=== PATIENT | male | born 1940 | race Asian ===

== ENCOUNTER 2021-02-26 08:53 | Inpatient (IN) | payer MEDICARE, MEDICAID ==
[~2021-02-26] VITALS: Ht 167.6 cm; Wt 79.8 kg
[~2021-02-26 08:53] MED LIST: ACET500C47 PO; BIMA2.5D4 OP; BRIM10DR2 OP; CLON0.1T PO; CLOP75TA4 PO; DEXL60CA3 PO; LISI20TA31 PO; LOP25 PO; MINO2.5T2 PO; OMEG1CAP17 PO; TAMS0.4C31 PO; URSO300C4 PO; WELC PO; ZOLP5TAB8 PO
[2021-02-26] MEDS ORDERED: DEXAMETHASONE 4MG/ML 1ML VIAL IV ONE (09:45)
[2021-02-26 10:03] LABS: HEMATOCRIT. 35.3 % (42.0-52.0); HEMOGLOBIN. 11.8 g/dL (14.0-18.0); MEAN CORPUSCULAR HEMOGLOBIN 28.6 pg (28.0-32.0); MEAN CORPUSCULAR VOLUME 85.3 fL (80.0-94.0); PLATELET 500 x1000/uL (130-400); RED BLOOD CELL COUNT 4.13 mill/uL (4.7-6.1); RED CELL DISTRIBUTION WIDTH 14.9 % (11.6-14.6)
[2021-02-26 10:10] LABS: CHLORIDE 99 mEq/L (98-107)
[2021-02-26 10:13] LABS: PROTHROMBIN TIME 11.1 sec (9.6-11.0)
[2021-02-26] MEDS ORDERED: PIPERACILLIN/TAZ 3.375G PREMIX 50 ML IV ONE (10:15)
[2021-02-26] MEDS ORDERED: VANCOMYCIN 1 G PREMIX 200 ML IV ONE (10:15)
[2021-02-26 10:46] LABS: PLATELET ESTIMATE INCREASED
[2021-02-26 11:20] LABS: CLARITY URINE CLEAR (CLEAR); COLOR URINE DARK YELLOW (YELLOW); KETONES URINE NEGATIVE (NEGATIVE); LEUKOCYTE ESTERASE URINE TRACE (NEGATIVE); NITRITE URINE NEGATIVE (NEGATIVE); OCCULT BLOOD URINE NEGATIVE (NEGATIVE); PROTEIN URINE NEGATIVE (NEGATIVE); SPECIFIC GRAVITY URINE 1.018 (1.005-1.030)
[2021-02-26] MEDS ORDERED: ONDANSETRON HCL 4MG/2ML INJ IV PRN (16:45)
[2021-02-26] MEDS ORDERED: ACETAMINOPHEN 325MG TABLET PO PRN (16:45)
[2021-02-26] MEDS ORDERED: ALBUTEROL 6.7GM HFA INHALER ORI PRN (16:45)
[2021-02-26] MEDS: SODIUM CHLORIDE 0.9% 1,000 ML IV SCH (16:54)
[2021-02-26] MEDS ORDERED: PIPERACILLIN/TAZOBACTAM 3.375 G in DEXTROSE 5% WATER 50 ML IV SCH (18:00)
[2021-02-26] MEDS: ENOXAPARIN 40MG/0.4ML SYR SUBCUT SCH (18:14)
[2021-02-26] MEDS: VANCOMYCIN 750 MG PREMIX 150 ML IV SCH (23:31)
[2021-02-26] MEDS ORDERED: ALBUTEROL (0.083%) 2.5MG/3ML NEB HHN PRN (23:45)
[2021-02-27] MEDS: PIPERACILLIN/TAZOBACTAM 3.375 G in DEXTROSE 5% WATER 50 ML IV SCH ×4 (02:18→17:43)
[2021-02-27 04:00] VITALS: BP 132/59
[2021-02-27 05:02] VITALS: BP 128/59
[2021-02-27 07:34] LABS: HEMATOCRIT. 36.1 % (42.0-52.0); HEMOGLOBIN. 12.1 g/dL (14.0-18.0); MEAN CORPUSCULAR HEMOGLOBIN 28.7 pg (28.0-32.0); MEAN CORPUSCULAR VOLUME 85.3 fL (80.0-94.0); MEAN PLATELET VOLUME 8.3 fl (7.4-10.4); PLATELET 529 x1000/uL (130-400); RED BLOOD CELL COUNT 4.23 mill/uL (4.7-6.1); RED CELL DISTRIBUTION WIDTH 14.9 % (11.6-14.6)
[2021-02-27 08:03] LABS: CHLORIDE 98 mEq/L (98-107)
[2021-02-27] MEDS: SODIUM CHLORIDE 0.9% 1,000 ML IV SCH (11:34)
[2021-02-27] MEDS: VANCOMYCIN 750 MG PREMIX 150 ML IV SCH (14:00)
[2021-02-27] MEDS ORDERED: VANCOMYCIN 750 MG PREMIX 150 ML IV SCH (14:00)
[2021-02-27 16:00] VITALS: BP 103/61
[2021-02-27 17:12] LABS: PLATELET ESTIMATE INCREASED
[2021-02-27] MEDS: ENOXAPARIN 40MG/0.4ML SYR SUBCUT SCH (17:43)
[2021-02-27] MEDS: LINEZOLID 600 MG PREMIX 300 ML IV SCH (17:43)
[2021-02-27] MEDS: BRIMONIDINE 0.2% OPHTH DROPS 5ML LEFTEYE SCH ×2 (17:44→22:45)
[2021-02-27 20:00] VITALS: BP 138/61
[2021-02-27] MEDS: COLCHICINE 0.6MG TABLET PO SCH (21:26)
[2021-02-28] VITALS: BP 128/60
[2021-02-28] MEDS ORDERED: VANCOMYCIN 750 MG PREMIX 150 ML IV SCH
[2021-02-28] MEDS: PIPERACILLIN/TAZOBACTAM 3.375 G in DEXTROSE 5% WATER 50 ML IV SCH ×5 (00:22→23:03)
[2021-02-28 04:00] VITALS: BP 140/66
[2021-02-28] MEDS: LINEZOLID 600 MG PREMIX 300 ML IV SCH ×2 (04:49→17:05)
[2021-02-28] MEDS: BRIMONIDINE 0.2% OPHTH DROPS 5ML LEFTEYE SCH ×3 (05:24→22:06)
[2021-02-28 08:00] VITALS: BP 149/61
[2021-02-28] MEDS: COLCHICINE 0.6MG TABLET PO SCH ×2 (08:23→20:50)
[2021-02-28] MEDS: CLOPIDOGREL 75MG TABLET PO SCH (08:23)
[2021-02-28] MEDS: SODIUM CHLORIDE 0.9% 1,000 ML IV SCH (08:23)
[2021-02-28 09:04] LABS: CHLORIDE 99 mEq/L (98-107)
[2021-02-28 12:00] VITALS: BP 168/86
[2021-02-28] MEDS: AMLODIPINE 10MG TABLET PO SCH (12:00)
[2021-02-28] MEDS: CLONIDINE 0.1MG TABLET PO PRN ×2 (12:24→20:49)
[2021-02-28 16:00] VITALS: BP 140/62
[2021-02-28] MEDS ORDERED: POTASSIUM CHLORIDE 20MEQ TABLET SR PO SCH (16:15)
[2021-02-28 17:00] LABS: BASOPHILS % 0.4 % (0.0-2.0); EOSINOPHILS % 0.2 % (0.0-5.0); HEMATOCRIT. 33.3 % (42.0-52.0); HEMOGLOBIN. 11.1 g/dL (14.0-18.0); LYMPHOCYTES % 12.9 % (20.0-50.0); MEAN CORPUSCULAR HEMOGLOBIN 28.7 pg (28.0-32.0); MEAN CORPUSCULAR VOLUME 86.3 fL (80.0-94.0); MEAN PLATELET VOLUME 8.2 fl (7.4-10.4); MONOCYTES % 8.4 % (2.0-8.0); NEUTROPHILS % 78.1 % (40.0-76.0); PLATELET 421 x1000/uL (130-400); RED BLOOD CELL COUNT 3.86 mill/uL (4.7-6.1); RED CELL DISTRIBUTION WIDTH 14.8 % (11.6-14.6)
[2021-02-28] MEDS: ENOXAPARIN 40MG/0.4ML SYR SUBCUT SCH (17:04)
[2021-02-28 20:00] VITALS: BP 164/59
[2021-02-28] MEDS: FINASTERIDE 5MG TABLET PO SCH (20:48)
[2021-02-28] MEDS: GUAIFENESIN 600MG ER TABLET PO SCH (20:49)
[2021-02-28] MEDS: TAMSULOSIN HCL 0.4MG SR CAPSULE PO SCH (20:49)
[2021-03-01] VITALS (7 sets, daily range): BP systolic 120–169; BP diastolic 52–70
[2021-03-01] MEDS: LINEZOLID 600 MG PREMIX 300 ML IV SCH (05:00)
[2021-03-01] MEDS: SODIUM CHLORIDE 0.9% 1,000 ML IV SCH (05:00)
[2021-03-01] MEDS: PIPERACILLIN/TAZOBACTAM 3.375 G in DEXTROSE 5% WATER 50 ML IV SCH ×3 (05:34→17:51)
[2021-03-01] MEDS: BRIMONIDINE 0.2% OPHTH DROPS 5ML LEFTEYE SCH ×3 (05:34→22:28)
[2021-03-01 07:55] LABS: BASOPHILS % 0.7 % (0.0-2.0); EOSINOPHILS % 0.5 % (0.0-5.0); HEMATOCRIT. 31.2 % (42.0-52.0); HEMOGLOBIN. 10.5 g/dL (14.0-18.0); LYMPHOCYTES % 17.1 % (20.0-50.0); MEAN CORPUSCULAR HEMOGLOBIN 28.9 pg (28.0-32.0); MEAN CORPUSCULAR VOLUME 85.4 fL (80.0-94.0); MEAN PLATELET VOLUME 8.1 fl (7.4-10.4); MONOCYTES % 10.6 % (2.0-8.0); NEUTROPHILS % 71.1 % (40.0-76.0); PLATELET 430 x1000/uL (130-400); RED BLOOD CELL COUNT 3.65 mill/uL (4.7-6.1); RED CELL DISTRIBUTION WIDTH 14.9 % (11.6-14.6)
[2021-03-01 07:58] LABS: CHLORIDE 101 mEq/L (98-107)
[2021-03-01] MEDS: COLCHICINE 0.6MG TABLET PO SCH ×2 (09:30→20:35)
[2021-03-01] MEDS: CLOPIDOGREL 75MG TABLET PO SCH (09:30)
[2021-03-01] MEDS: GUAIFENESIN 600MG ER TABLET PO SCH ×2 (09:30→20:35)
[2021-03-01] MEDS: TAMSULOSIN HCL 0.4MG SR CAPSULE PO SCH (09:30)
[2021-03-01] MEDS: FINASTERIDE 5MG TABLET PO SCH (09:30)
[2021-03-01] MEDS: AMLODIPINE 10MG TABLET PO SCH (09:30)
[2021-03-01] MEDS: LISINOPRIL 20MG TABLET PO SCH (13:00)
[2021-03-01] MEDS: ENOXAPARIN 40MG/0.4ML SYR SUBCUT SCH (17:51)
[2021-03-01] MEDS: VANCOMYCIN 750 MG PREMIX 150 ML IV SCH (17:51)
[2021-03-02] VITALS (7 sets, daily range): BP systolic 20–150; BP diastolic 61–122
[2021-03-02] MEDS: PIPERACILLIN/TAZOBACTAM 3.375 G in DEXTROSE 5% WATER 50 ML IV SCH ×4 (00:10→16:45)
[2021-03-02] MEDS: BRIMONIDINE 0.2% OPHTH DROPS 5ML LEFTEYE SCH ×3 (05:34→21:38)
[2021-03-02] MEDS: SODIUM CHLORIDE 0.9% 1,000 ML IV SCH (05:37)
[2021-03-02] MEDS: VANCOMYCIN 750 MG PREMIX 150 ML IV SCH ×2 (06:40→16:46)
[2021-03-02 07:43] LABS: CHLORIDE 101 mEq/L (98-107)
[2021-03-02 07:48] LABS: BASOPHILS % 0.8 % (0.0-2.0); EOSINOPHILS % 2.8 % (0.0-5.0); HEMATOCRIT. 34.8 % (42.0-52.0); HEMOGLOBIN. 11.8 g/dL (14.0-18.0); LYMPHOCYTES % 17.4 % (20.0-50.0); MEAN CORPUSCULAR HEMOGLOBIN 28.9 pg (28.0-32.0); MEAN CORPUSCULAR VOLUME 85.4 fL (80.0-94.0); MEAN PLATELET VOLUME 8.3 fl (7.4-10.4); MONOCYTES % 8.9 % (2.0-8.0); NEUTROPHILS % 70.1 % (40.0-76.0); PLATELET 411 x1000/uL (130-400); RED BLOOD CELL COUNT 4.08 mill/uL (4.7-6.1); RED CELL DISTRIBUTION WIDTH 14.7 % (11.6-14.6)
[2021-03-02] MEDS: GUAIFENESIN 600MG ER TABLET PO SCH ×2 (09:49→21:38)
[2021-03-02] MEDS: FINASTERIDE 5MG TABLET PO SCH (09:49)
[2021-03-02] MEDS: LISINOPRIL 20MG TABLET PO SCH (09:49)
[2021-03-02] MEDS: CLOPIDOGREL 75MG TABLET PO SCH (09:51)
[2021-03-02] MEDS: TAMSULOSIN HCL 0.4MG SR CAPSULE PO SCH (09:51)
[2021-03-02] MEDS: AMLODIPINE 10MG TABLET PO SCH (09:51)
[2021-03-02] MEDS: COLCHICINE 0.6MG TABLET PO SCH ×2 (09:51→21:38)
[2021-03-02] MEDS ORDERED: LINE600T14 MT ×2 (12:57→13:02)
[2021-03-02] MEDS: ENOXAPARIN 40MG/0.4ML SYR SUBCUT SCH (17:53)
[2021-03-02] MEDS ORDERED: LINEZOLID 600MG TABLET PO SCH (21:00)
== END 2021-03-02 22:35 | disposition home health service (06) | DRG 871 ==
LOC: ER 08:53 → MICUSO 11:30 → EDBEDREQ 11:35 → EDBEDREQSVC 11:35 → 8WST 23:50
PROVIDERS: ADMIT Internal Medicine; ATTEND Internal Medicine
DX: A41.81 Sepsis due to Enterococcus (principal); E43 Unspecified severe protein-calorie malnutrition; J69.0 Pneumonitis due to inhalation of food and vomit; J96.01 Acute respiratory failure with hypoxia; E87.1 Hypo-osmolality and hyponatremia; D64.9 Anemia, unspecified; R74.01 Elevation of levels of liver transaminase levels; I10 Essential (primary) hypertension; Z20.822 Contact with and (suspected) exposure to COVID-19; Z87.01 Personal history of pneumonia (recurrent); Z88.6 Allergy status to analgesic agent; Z93.1 Gastrostomy status; Z79.899 Other long term (current) drug therapy; Z68.28 Body mass index [BMI] 28.0-28.9, adult
CPT/HCPCS: 36415; 71045; 80048; 80053; 81003; 82728; 83605; 83880; 84145; 84484; 85025; 86140; 87077; 87186; 93005; 93306; 99291; J1100; J1650; J2020; J2543; J3370; J7030; J7040; J7060; U0003; U0005

== ENCOUNTER 2022-06-02 14:57 | Inpatient (IN) | payer MEDICARE, MEDICAID ==
[~2022-06-02] VITALS: Ht 177.8 cm; Wt 84.4 kg
[~2022-06-02 14:57] MED LIST changes: +CLOP-31 PO; -CLOP75TA4 PO
[2022-06-02] MEDS ORDERED: ONDANSETRON HCL 4MG/2ML INJ IV ONE (15:30)
[2022-06-02] MEDS ORDERED: VANCOMYCIN 1G PREMIX 200 ML IV ONE (15:30)
[2022-06-02] MEDS ORDERED: SODIUM CHLORIDE 0.9% 1000ML BAG (SEPSIS BOLUS) IV ONE (15:30)
[2022-06-02] MEDS ORDERED: AZITHROMYCIN 500MG/250ML 250 ML IV ONE (15:30)
[2022-06-02 15:39] LABS: BASOPHILS % 0.4 % (0.0-2.0); EOSINOPHILS % 0.1 % (0.0-5.0); HEMATOCRIT. 36.7 % (42.0-52.0); HEMOGLOBIN. 12.5 g/dL (14.0-18.0); LYMPHOCYTES % 9.8 % (20.0-50.0); MEAN CORPUSCULAR HEMOGLOBIN 28.9 pg (28.0-32.0); MEAN CORPUSCULAR VOLUME 84.7 fL (80.0-94.0); MEAN PLATELET VOLUME 8.4 fl (7.4-10.4); MONOCYTES % 2.1 % (2.0-8.0); NEUTROPHILS % 87.6 % (40.0-76.0); PLATELET 439 x1000/uL (130-400); RED BLOOD CELL COUNT 4.34 mill/uL (4.7-6.1); RED CELL DISTRIBUTION WIDTH 15.9 % (11.6-14.6)
[2022-06-02] MEDS ORDERED: FUROSEMIDE 40MG/4ML VIAL IVP ONE (16:45)
[2022-06-02 16:50] LABS: CHLORIDE 94 mEq/L (98-107)
[2022-06-02 16:52] LABS: INR 1.1; PROTHROMBIN TIME 11.5 sec (9.6-11.0)
[2022-06-02 16:57] LABS: BG CARBOXYHEMOGLOBIN 0.8 % (0.5-1.5); BG DEOXYHEMOGLOBIN 1.4 % (0.0-5.0); BG FRACTION INSPIRED OXYGEN 100; BG HCO3 ACT 21.5 mmol/L (22.0-26.0); BG METHEMOGLOBIN 0.3 % (0.0-1.5); BG OXYGEN SATURATION 98.6 % (92.0-98.5); BG OXYHEMOGLOBIN 97.5 % (94.0-97.0); BG PCO2 41.1 mmHg (35.0-45.0); BG PH 7.337 (7.350-7.450); BG PO2 133.8 mmHg (75.0-100.0); BG SAMPLE SITE RIGHT BRACHIAL; BG TOTAL HEMOGLOBIN 13.1 g/dL (12.0-18.0); BG VENT MODE MASK - NRB
[2022-06-02] MEDS ORDERED: VANCOMYCIN 1,000 MG in DEXT 5% WATER 250 ML IV NR (17:30)
[2022-06-02 19:43] LABS: CLARITY URINE TURBID (CLEAR); COLOR URINE YELLOW (YELLOW); KETONES URINE NEGATIVE (NEGATIVE); LEUKOCYTE ESTERASE URINE 3+ (NEGATIVE); NITRITE URINE POSITIVE (NEGATIVE); OCCULT BLOOD URINE TRACE (NEGATIVE); PROTEIN URINE 3+ (NEGATIVE); SPECIFIC GRAVITY URINE 1.013 (1.005-1.030)
[2022-06-03] VITALS (22 sets, daily range): BP systolic 108–151; BP diastolic 48–87
[2022-06-03] MEDS ORDERED: DEXT 5%/0.9% NACL 1,000 ML IV ONE (14:00)
[2022-06-03] MEDS: FAMOTIDINE 20MG/2ML VIAL IV SCH (14:37)
[2022-06-03 15:55] LABS: MEAN PLATELET VOLUME 7.7 fl (7.4-10.4)
[2022-06-03 15:57] LABS: BASOPHILS % 0.2 % (0.0-2.0); HEMATOCRIT. 37.5 % (42.0-52.0); HEMOGLOBIN. 12.7 g/dL (14.0-18.0); LYMPHOCYTES % 9.4 % (20.0-50.0); MEAN CORPUSCULAR HEMOGLOBIN 28.8 pg (28.0-32.0); MEAN CORPUSCULAR VOLUME 85.1 fL (80.0-94.0); MONOCYTES % 10.3 % (2.0-8.0); NEUTROPHILS % 80.1 % (40.0-76.0); PLATELET 410 x1000/uL (130-400); RED CELL DISTRIBUTION WIDTH 15.8 % (11.6-14.6)
[2022-06-03 16:07] LABS: CHLORIDE 95 mEq/L (98-107)
[2022-06-03] MEDS ORDERED: ACETAMINOPHEN 325MG TABLET PO PRN (18:00)
[2022-06-03] MEDS ORDERED: HYDROCODONE/ACETAMINOPHEN 5/325MG TABLET PO PRN (18:00)
[2022-06-03] MEDS ORDERED: MAGNESIUM/ALUMINUM HYDROXIDE/SIMETHICONE 30ML UDC PO PRN (18:00)
[2022-06-03] MEDS ORDERED: CLONIDINE 0.1MG TABLET PO PRN (18:00)
[2022-06-03] MEDS ORDERED: CEFTRIAXONE 1 G PREMIX 50 ML IV SCH (18:00)
[2022-06-03] MEDS ORDERED: ONDANSETRON HCL 4MG/2ML INJ IV PRN (18:00)
[2022-06-03] MEDS ORDERED: DEXTROSE 50% WATER 50ML SYRINGE IV PRN ×2 (18:00)
[2022-06-03] MEDS: INSULIN LISPRO 100 UNITS/ML SUBCUT SCH ×2 (18:00→23:13)
[2022-06-03] MEDS ORDERED: NALOXONE HCL 0.4MG/ML VIAL IV PRN (18:15)
[2022-06-03] MEDS ORDERED: FINA5TAB11 PO (18:17)
[2022-06-03] MEDS ORDERED: AMLO5TAB88 PO (18:17)
[2022-06-03] MEDS ORDERED: SERT-422 PO (18:18)
[2022-06-03] MEDS ORDERED: TRAZ-251 PO (18:19)
[2022-06-03] MEDS ORDERED: ROSU5TAB PO (18:20)
[2022-06-03] MEDS: SODIUM CHLORIDE 0.9% 1,000 ML IV SCH (18:45)
[2022-06-03] MEDS: CLONIDINE 0.1MG TABLET PO SCH (18:45)
[2022-06-03] MEDS ORDERED: CEFTRIAXONE 1,000 MG in DEXTROSE 5% WATER 50 ML IV SCH (20:00)
[2022-06-03] MEDS: ZOLPIDEM TARTRATE 5MG TABLET PO SCH (21:30)
[2022-06-03] MEDS: LISINOPRIL 20MG TABLET PO SCH (21:30)
[2022-06-03] MEDS: MINOXIDIL 2.5MG TABLET PO SCH (21:30)
[2022-06-03] MEDS: CEFTRIAXONE 1,000 MG in DEXTROSE 5% WATER 50 ML IV SCH (22:05)
[2022-06-03] MEDS: ENOXAPARIN 40MG/0.4ML SYR SUBCUT SCH (22:10)
[2022-06-03] MEDS: BLOOD SUGAR DIAGNOSTIC STRIP TEST SCH (23:13)
[2022-06-04] VITALS (21 sets, daily range): BP systolic 110–152; BP diastolic 47–78
[2022-06-04] MEDS: CLONIDINE 0.1MG TABLET PO SCH ×2 (06:38→17:57)
[2022-06-04] MEDS: INSULIN LISPRO 100 UNITS/ML SUBCUT SCH ×4 (08:00→21:00)
[2022-06-04] MEDS: BLOOD SUGAR DIAGNOSTIC STRIP TEST SCH ×4 (08:06→21:18)
[2022-06-04 08:28] LABS: BASOPHILS % 0.4 % (0.0-2.0); EOSINOPHILS % 0.4 % (0.0-5.0); HEMATOCRIT. 36.1 % (42.0-52.0); HEMOGLOBIN. 12.2 g/dL (14.0-18.0); LYMPHOCYTES % 14.4 % (20.0-50.0); MEAN CORPUSCULAR HEMOGLOBIN 29.2 pg (28.0-32.0); MEAN CORPUSCULAR VOLUME 86.4 fL (80.0-94.0); MONOCYTES % 8.4 % (2.0-8.0); NEUTROPHILS % 76.4 % (40.0-76.0); PLATELET 396 x1000/uL (130-400); RED BLOOD CELL COUNT 4.18 mill/uL (4.7-6.1); RED CELL DISTRIBUTION WIDTH 15.6 % (11.6-14.6)
[2022-06-04] MEDS: COLESEVELAM HCL 625MG TABLET PO SCH (09:00)
[2022-06-04] MEDS: METOPROLOL TARTRATE 25MG TABLET PO SCH (09:02)
[2022-06-04] MEDS: TAMSULOSIN HCL 0.4MG SR CAPSULE PO SCH (09:02)
[2022-06-04] MEDS: URSODIOL 300MG CAPSULE PO SCH ×2 (09:02→17:50)
[2022-06-04] MEDS: CLOPIDOGREL 75MG TABLET PO SCH (09:02)
[2022-06-04] MEDS: LISINOPRIL 20MG TABLET PO SCH ×2 (09:02→21:19)
[2022-06-04] MEDS: FAMOTIDINE 20MG/2ML VIAL IV SCH (09:02)
[2022-06-04] MEDS: ACETAZOLAMIDE 500MG ER CAPSULE PO SCH ×2 (09:02→17:50)
[2022-06-04 09:35] LABS: SODIUM URINE RANDOM 37 mEq/L
[2022-06-04 10:19] LABS: BG BASE EXCESS -1.6 mmol/L (-2.0-2.0); BG CARBOXYHEMOGLOBIN 0.2 % (0.5-1.5); BG FRACTION INSPIRED OXYGEN 21; BG HCO3 ACT 23.1 mmol/L (22.0-26.0); BG METHEMOGLOBIN 0.3 % (0.0-1.5); BG OXYHEMOGLOBIN 91.5 % (94.0-97.0); BG PCO2 39.2 mmHg (35.0-45.0); BG PH 7.389 (7.350-7.450); BG PO2 58.1 mmHg (75.0-100.0); BG SAMPLE SITE RIGHT RADIAL; BG TOTAL HEMOGLOBIN 12.8 g/dL (12.0-18.0); BG VENT MODE ROOM AIR
[2022-06-04 11:05] LABS: CHLORIDE 98 mEq/L (98-107)
[2022-06-04 12:06] LABS: HDL CHOLESTEROL 44 mg/dL (40-59); LDL CHOLESTEROL 45 mg/dL (5-100); PHOSPHORUS 2.9 mg/dL (2.5-4.9)
[2022-06-04 13:57] LABS: T4 FREE 1.49 ng/dL (0.76-1.46)
[2022-06-04] MEDS ORDERED: MAGNESIUM 2 G PREMIX 50 ML IV NR (17:00)
[2022-06-04] MEDS: KCL 20MEQ/100ML PREMIX 100 ML IV SCH ×2 (17:50→18:37)
[2022-06-04] MEDS: SODIUM CHLORIDE 0.9% 1,000 ML IV SCH (17:57)
[2022-06-04] MEDS ORDERED: LACTULOSE 20G/30ML UDC PO NR (18:00)
[2022-06-04] MEDS ORDERED: BISACODYL 10MG SUPP PR PRN (18:00)
[2022-06-04] MEDS ORDERED: LACTULOSE 20G/30ML UDC PO PRN (18:00)
[2022-06-04] MEDS: ENOXAPARIN 40MG/0.4ML SYR SUBCUT SCH (21:19)
[2022-06-04] MEDS: CEFTRIAXONE 1,000 MG in DEXTROSE 5% WATER 50 ML IV SCH (21:19)
[2022-06-04] MEDS: ZOLPIDEM TARTRATE 5MG TABLET PO SCH (21:19)
[2022-06-04] MEDS: MINOXIDIL 2.5MG TABLET PO SCH (21:20)
[2022-06-05] VITALS (12 sets, daily range): BP systolic 104–156; BP diastolic 47–70
[2022-06-05] MEDS: CLONIDINE 0.1MG TABLET PO SCH ×2 (06:59→17:47)
[2022-06-05 07:29] LABS: BASOPHILS % 0.5 % (0.0-2.0); HEMATOCRIT. 38.2 % (42.0-52.0); LYMPHOCYTES % 10.6 % (20.0-50.0); MEAN CORPUSCULAR HEMOGLOBIN 29.3 pg (28.0-32.0); MEAN CORPUSCULAR VOLUME 85.8 fL (80.0-94.0); MONOCYTES % 9.1 % (2.0-8.0); NEUTROPHILS % 79.8 % (40.0-76.0); PLATELET 407 x1000/uL (130-400); RED BLOOD CELL COUNT 4.45 mill/uL (4.7-6.1); RED CELL DISTRIBUTION WIDTH 15.4 % (11.6-14.6)
[2022-06-05] MEDS: BLOOD SUGAR DIAGNOSTIC STRIP TEST SCH ×4 (07:30→21:52)
[2022-06-05] MEDS: INSULIN LISPRO 100 UNITS/ML SUBCUT SCH ×4 (08:00→20:56)
[2022-06-05] MEDS: FAMOTIDINE 20MG/2ML VIAL IV SCH (08:32)
[2022-06-05] MEDS: METOPROLOL TARTRATE 25MG TABLET PO SCH (08:33)
[2022-06-05] MEDS: URSODIOL 300MG CAPSULE PO SCH ×2 (08:33→17:45)
[2022-06-05] MEDS: ACETAZOLAMIDE 500MG ER CAPSULE PO SCH ×2 (08:33→17:45)
[2022-06-05] MEDS: LISINOPRIL 20MG TABLET PO SCH ×2 (08:33→20:55)
[2022-06-05] MEDS: TAMSULOSIN HCL 0.4MG SR CAPSULE PO SCH (08:33)
[2022-06-05] MEDS: CLOPIDOGREL 75MG TABLET PO SCH (08:34)
[2022-06-05] MEDS: COLESEVELAM HCL 625MG TABLET PO SCH (08:36)
[2022-06-05] MEDS ORDERED: COLESEVELAM HCL 625MG TABLET PO SCH (09:00)
[2022-06-05] MEDS: ALBUTEROL (0.083%) 2.5MG/3ML NEB HHN SCH ×3 (09:01→20:38)
[2022-06-05] MEDS: ACETYLCYSTEINE 200MG/ML 20% VIAL 4ML INH SCH ×2 (09:01→20:37)
[2022-06-05 10:35] LABS: CHLORIDE 99 mEq/L (98-107)
[2022-06-05 10:47] LABS: PHOSPHORUS 2.6 mg/dL (2.5-4.9)
[2022-06-05] MEDS: CHOLESTYRAMINE/SUCROSE 4G POWDER PACKET PO SCH (17:45)
[2022-06-05] MEDS: SODIUM CHLORIDE 0.9% 1,000 ML IV SCH (17:49)
[2022-06-05] MEDS: MINOXIDIL 2.5MG TABLET PO SCH (20:55)
[2022-06-05] MEDS: CEFTRIAXONE 1,000 MG in DEXTROSE 5% WATER 50 ML IV SCH (20:56)
[2022-06-05] MEDS: ZOLPIDEM TARTRATE 5MG TABLET PO SCH (20:56)
[2022-06-05] MEDS: ENOXAPARIN 40MG/0.4ML SYR SUBCUT SCH (20:56)
[2022-06-06] VITALS (12 sets, daily range): BP systolic 100–145; BP diastolic 43–78
[2022-06-06] MEDS: ALBUTEROL (0.083%) 2.5MG/3ML NEB HHN SCH ×4 (02:16→20:41)
[2022-06-06 05:19] LABS: BASOPHILS % 0.6 % (0.0-2.0); EOSINOPHILS % 0.5 % (0.0-5.0); HEMATOCRIT. 37.3 % (42.0-52.0); HEMOGLOBIN. 12.3 g/dL (14.0-18.0); LYMPHOCYTES % 17.7 % (20.0-50.0); MEAN CORPUSCULAR HEMOGLOBIN 28.7 pg (28.0-32.0); MEAN CORPUSCULAR VOLUME 87.3 fL (80.0-94.0); MEAN PLATELET VOLUME 7.8 fl (7.4-10.4); MONOCYTES % 11.2 % (2.0-8.0); PLATELET 384 x1000/uL (130-400); RED BLOOD CELL COUNT 4.28 mill/uL (4.7-6.1); RED CELL DISTRIBUTION WIDTH 16.1 % (11.6-14.6)
[2022-06-06] MEDS: CLONIDINE 0.1MG TABLET PO SCH ×2 (05:37→17:07)
[2022-06-06 06:18] LABS: CHLORIDE 105 mEq/L (98-107)
[2022-06-06] MEDS: INSULIN LISPRO 100 UNITS/ML SUBCUT SCH ×4 (07:21→20:56)
[2022-06-06] MEDS: BLOOD SUGAR DIAGNOSTIC STRIP TEST SCH ×4 (07:21→20:49)
[2022-06-06] MEDS: ACETAZOLAMIDE 500MG ER CAPSULE PO SCH ×2 (08:53→17:06)
[2022-06-06] MEDS: FAMOTIDINE 20MG/2ML VIAL IV SCH (08:53)
[2022-06-06] MEDS: CLOPIDOGREL 75MG TABLET PO SCH (08:54)
[2022-06-06] MEDS: METOPROLOL TARTRATE 25MG TABLET PO SCH (08:54)
[2022-06-06] MEDS: URSODIOL 300MG CAPSULE PO SCH ×2 (08:54→17:06)
[2022-06-06] MEDS: TAMSULOSIN HCL 0.4MG SR CAPSULE PO SCH (08:55)
[2022-06-06] MEDS: CHOLESTYRAMINE/SUCROSE 4G POWDER PACKET PO SCH ×2 (08:55→17:06)
[2022-06-06] MEDS: LISINOPRIL 20MG TABLET PO SCH ×2 (08:55→20:48)
[2022-06-06] MEDS: ACETYLCYSTEINE 200MG/ML 20% VIAL 4ML INH SCH (09:53)
[2022-06-06] MEDS ORDERED: POTASSIUM CHLORIDE 20MEQ TABLET SR PO NR (11:30)
[2022-06-06] MEDS: SODIUM CHLORIDE 0.9% 1,000 ML IV SCH (17:08)
[2022-06-06] MEDS: MINOXIDIL 2.5MG TABLET PO SCH (20:47)
[2022-06-06] MEDS: ZOLPIDEM TARTRATE 5MG TABLET PO SCH (20:48)
[2022-06-06] MEDS: ENOXAPARIN 40MG/0.4ML SYR SUBCUT SCH (20:49)
[2022-06-06] MEDS: CEFTRIAXONE 1,000 MG in DEXTROSE 5% WATER 50 ML IV SCH (20:49)
[2022-06-07] VITALS (10 sets, daily range): BP systolic 118–138; BP diastolic 46–80
[2022-06-07] MEDS: ALBUTEROL (0.083%) 2.5MG/3ML NEB HHN SCH ×3 (02:12→16:16)
[2022-06-07] MEDS: ACETYLCYSTEINE 200MG/ML 20% VIAL 4ML INH SCH ×2 (02:12→09:18)
[2022-06-07] MEDS: CLONIDINE 0.1MG TABLET PO SCH ×2 (06:00→18:00)
[2022-06-07] MEDS: INSULIN LISPRO 100 UNITS/ML SUBCUT SCH ×3 (08:00→18:00)
[2022-06-07 08:03] LABS: HEMATOCRIT 37.6 % (42.0-52.0); HEMOGLOBIN 12.4 g/dL (14.0-18.0); MEAN CORPUSCULAR HEMOGLOBIN 28.9 pg (28.0-32.0); MEAN CORPUSCULAR VOLUME 87.2 fL (80.0-94.0); PLATELET 402 x1000/uL (130-400); RED BLOOD CELL COUNT 4.31 mill/uL (4.7-6.1)
[2022-06-07] MEDS: BLOOD SUGAR DIAGNOSTIC STRIP TEST SCH ×3 (08:04→18:07)
[2022-06-07] MEDS: CLOPIDOGREL 75MG TABLET PO SCH (08:17)
[2022-06-07] MEDS: ACETAZOLAMIDE 500MG ER CAPSULE PO SCH ×2 (08:18→18:06)
[2022-06-07] MEDS: LISINOPRIL 20MG TABLET PO SCH (08:18)
[2022-06-07] MEDS: TAMSULOSIN HCL 0.4MG SR CAPSULE PO SCH (08:18)
[2022-06-07] MEDS: URSODIOL 300MG CAPSULE PO SCH ×2 (08:18→18:06)
[2022-06-07] MEDS: METOPROLOL TARTRATE 25MG TABLET PO SCH (08:19)
[2022-06-07] MEDS: CHOLESTYRAMINE/SUCROSE 4G POWDER PACKET PO SCH ×2 (08:19→18:06)
[2022-06-07] MEDS: FAMOTIDINE 20MG/2ML VIAL IV SCH (08:19)
[2022-06-07 09:07] LABS: CHLORIDE 114 mEq/L (98-107)
== END 2022-06-07 18:47 | disposition home health service (06) | DRG 871 ==
LOC: ER 14:57 → MICUSO 06-03 04:32 → 5EST 06-03 09:33
PROVIDERS: ADMIT Internal Medicine; ATTEND Internal Medicine
PROC: 0W9B30Z Drainage of Left Pleural Cavity with Drainage Device, Percutaneous Approach (ICD-10-PCS; principal; 2022-06-03)
DX: A41.9 Sepsis, unspecified organism (principal); J96.01 Acute respiratory failure with hypoxia; J91.8 Pleural effusion in other conditions classified elsewhere; E87.1 Hypo-osmolality and hyponatremia; E46 Unspecified protein-calorie malnutrition; N39.0 Urinary tract infection, site not specified; G71.00 Muscular dystrophy, unspecified; Z20.822 Contact with and (suspected) exposure to COVID-19; E78.00 Pure hypercholesterolemia, unspecified; R74.01 Elevation of levels of liver transaminase levels; N40.1 Benign prostatic hyperplasia with lower urinary tract symptoms; K80.20 Calculus of gallbladder without cholecystitis without obstruction; E11.65 Type 2 diabetes mellitus with hyperglycemia; H40.9 Unspecified glaucoma; I11.9 Hypertensive heart disease without heart failure; Z68.26 Body mass index [BMI] 26.0-26.9, adult; Z88.8 Allergy status to other drugs, medicaments and biological substances; Z79.899 Other long term (current) drug therapy; Z87.891 Personal history of nicotine dependence; Z93.1 Gastrostomy status
CPT/HCPCS: 36415; 36600; 71045; 71250; 74018; 76700; 80048; 80053; 80061; 80076; 81003; 82375; 82805; 82962; 83036; 83605; 83615; 83735; 83880; 83930; 83935; 84100; 84145; 84300; 84439; 84443; 84484; 84550; 84560; 85025; 85027; 87426; 93005; 93970; 94667; 97161; 97165; 99291; C1893; C9803; J0456; J0696; J1650; J1815; J1940; J2405; J3370; J3475; J3480; J3490; J7030; J7060; J7608